=== PATIENT | female | born 1980 | race Two or more races ===

== ENCOUNTER 2016-10-01 20:35 | Emergency (ER) | payer OTHER ==
[~2016-10-01] VITALS: Wt 68.2 kg
[~2016-10-01 20:35] MED LIST: IBUP-1542 PO; METO-448 PO
[2016-10-01] MEDS ORDERED: KETOROLAC 30 MG INJ IM STA (21:52)
--- NOTE | 2016-10-01 22:39 | RADRPT ---
AMENDMENT: 10/01/2016 10:40:39 PM Eduardo Rodas M.D Impression correction: Impression: Unremarkable left ankle. RPTAT:AAJJ PROCEDURE: XR Ankle. CLINICAL INDICATION: Left ankle pain and swelling. TECHNIQUE: AP and lateral views of the left ankle were performed. COMPARISON: None. FINDINGS: There is normal mineralization and alignment. No fracture or osseous lesion is identified. The joint s are normal. The soft tissues are unremarkable. IMPRESSION: Unremarkable right ankle. Physician Shanae Date Time Electronically viewed and signed by Physician Shanae on 10/01/2016 22:40 ELHAM/
[2016-10-01] MEDS ORDERED: IBUP-1542 PO (22:46)
--- NOTE | 2016-10-01 22:46 | ERD ---
ER Documentation Chief Complaint Date/Time DATE: 10/01/16 Chief Complaint s/p fall, left ankle swelling and pain HPI The patient is a 36-year-old female who presents the emergency department with complaint of left ankle pain. The patient reports that at approximately 12:00 pm this afternoon while at work she slipped and inverted her left ankle. She had no immediate pain, but at approximately 3:00 pm she began to develop pain to the lateral and medial aspects of the left ankle. The pain is throbbing in nature, and worse with movement. She reports mild relief at rest. The patient rates her current pain as 8 out of 10, though she notes that she has not yet taken any medication for pain relief. She denies any numbness, paresthesias or weakness of the distal extremity. Denies any restricted range of motion. Denies of any overlying skin changes, ecchymosis, abrasions or lacerations. ROS All systems reviewed and are negative except as per history of present illness. Medications Home Meds Active Scripts Ibuprofen* (Motrin*) 600 Mg Tab, 600 MG PO Q6, #30 TAB Prov:KASSI QUIROZ PA-C 10/01/16 Ibuprofen* (Motrin*) 600 Mg Tab, 600 MG PO Q6H Y for PAIN AND OR ELEVATED TEMP, #30 TAB Prov:HEMANTH HERNANDEZ NP 09/14/15 Reported Medications Metoprolol Tartrate* (Lopressor*) 25 Mg Tab, 25 MG PO DAILY 04/29/13 Allergies Allergies: Coded Allergies: No Known Drug Allergy (Verified Allergy, Unknown, 08/19/08) lidocaine (Verified Allergy, Unknown, 07/11/14) PMhx/Soc History of Surgery: Yes (HYSTERECTOMY, ) Anesthesia Reaction: No Hx Alcohol Use: No Hx Substance Use: No Hx Tobacco Use: No Physical Exam Vitals Vital Signs Date Time Temp Pulse Resp B/P Pulse Ox O2 Delivery O2 Flow Rate FiO2 10/01/16 23:04 97.8 87 17 121/88 100 Room Air 10/01/16 20:39 97.6 93 20 129/79 99 Physical Exam GENERAL: Well-developed, well-nourished male in no acute distress. HEENT: Head is normocephalic, atraumatic. No scleral pallor or icterus. Conjunctivae pink. Moist mucous membranes. NECK: Supple. RESPIRATORY: Lungs are clear to auscultation bilaterally. Equal breath sounds. CARDIOVASCULAR: Regular rate and rhythm. Distal pulses are palpable, 2+ bilaterally. Capillary refill is less than 2 seconds. No murmurs, rubs or gallops. GASTROINTESTINAL: Abdomen is soft, nontender, nondistended. BACK: No midline tenderness. No paraspinal muscle tenderness. EXTREMITIES: No clubbing or cyanosis. Mild edema of the left lateral ankle. Pain on palpation of the distal aspect of the fibula and tibia. Pain on palpation posterior to the lateral malleolus. Pain on dorsiflexion of the left ankle against resistance. Normal skin perfusion. Normal pulses, 2+ pulses peripherally bilaterally. The ankle and foot is neurovascularly intact. 5/5 sensation and motor of the upper and lower extremities bilaterally. Full range of motion of the upper extremities. Muscle tone is normal. No erythema noted. Anterior drawer test negative. Talar tilt test negative. Compartments are soft. NEUROLOGIC: The patient is alert, awake and oriented x 3. No focal neurologic deficits. Motor and sensation grossly intact. Speech is normal. INTEGUMENT: Skin is intact, warm, and dry. No lacerations or abrasions. PSYCHIATRIC: Normal mood and mentation. Results 24 hrs Current Medications Medications (Trade) Dose Ordered Sig/Walter Route PRN Reason Start Time Stop Time Status Last Admin Dose Admin Ketorolac Tromethamine (Toradol) 30 mg ONCE STAT IM 10/01/16 21:52 10/01/16 21:54 DC 10/01/16 22:01 Procedures/MDM DIAGNOSTIC TESTS AND INTERPRETATION: PROCEDURE: XR Ankle. CLINICAL INDICATION: Left ankle pain and swelling. TECHNIQUE: AP and lateral views of the left ankle were performed. COMPARISON: None. FINDINGS:There is normal mineralization and alignment. No fracture or osseous lesion is identified. The joints are normal. The soft tissues are unremarkable. IMPRESSION: Unremarkable left ankle. Physician Shanae Date Time Electronically viewed and signed by Physician Shanae on 10/01/2016 22:40 ODALYS WRAP APPLICATION: INDICATION: Ankle sprain. LOCATION: Left lower extremity, ankle. NEUROVASCULAR EXAM: The patients extremity was neurovascularly intact prior to and status post odalys wrap placement. MEDICAL DECISION MAKING: This is a 36-year-old female presenting to the emergency department with left ankle pain after an inversion injury s/p slipping at work. The patient had swelling and tenderness localized to the lateral malleolus and ankle on physical examination, but otherwise vital signs are stable. Differential diagnosis includes, but is not limited to, soft tissue injury, sprain, strain, dislocation, subluxation, contusion, fracture, vascular injury, peripheral nerve injury, compartment syndrome. Compartments soft, with no evidence of compartment syndrome. No pain out of proportion to examination. No restricted range of motion. Distal extremity neurovascularly intact. No significant abnormalities were noted on the diagnostic tests modalities ordered. Her condition improved during her stay after the administration of Toradol. On reevaluation, the patient reports no new complaints. Her lower extremity was placed in an odalys wrap and she was given crutches for further comfort. Upon my review and interpretation of the patient's presentation, clinical data, and overall ER course I believe the patient's symptoms are most consistent with left ankle sprain. At this time the patient is in stable condition and therefore can be discharged home with prescription for Ibuprofen and given strict return precautions for signs of acute deterioration of condition. The patient is advised to follow up with her primary care provider for reevaluation and further management within 2-3 days, or return to the ER sooner for any new or worsening symptoms. She is instructed on further outpatient pain control methods, including rest, icing and elevation. I shared my medical decision making, plan and the diagnostic results with the patient and she verbally understands and agrees with the plan for further observation and care as an outpatient. At the time of discharge all questions were answered. Departure Diagnosis: Primary Impression: Left ankle sprain Encounter type: initial encounter Involved ligament of ankle: unspecified ligament Qualified Code: S93.402A - Sprain of left ankle, unspecified ligament , initial encounter Condition: Stable Patient Instructions: R.I.C.E., Self-Care for Strains and Sprains, Treating Ankle Sprains Additional Instructions: Call your primary care doctor TOMORROW for an appointment during the next 2-3 days.See the doctor sooner or return here if your condition worsens before your appointment time. KASSI QUIROZ PA-C Oct 01, 2016 22:46
[2016-10-01 23:04] VITALS: BP 121/88; PULSE 87; RESP 17; TEMP 97.8
== END 2016-10-01 23:04 | disposition home or self-care (01) ==
LOC: FTE 20:35
DX: S93.402A Sprain of unspecified ligament of left ankle, initial encounter (principal); W01.0XXA Fall on same level from slipping, tripping and stumbling without subsequent striking against object, initial encounter; Y92.9 Unspecified place or not applicable
CPT/HCPCS: 73610; 96372; J1885; Z7502